=== PATIENT | male | born 1985 | race Two or more races ===

== ENCOUNTER 2019-06-24 16:42 | Emergency (ER) | payer OTHER ==
[~2019-06-24] VITALS: Ht 175.3 cm; Wt 90.7 kg
--- NOTE | 2019-06-24 16:55 | NUR ---
Patient walked in c/o flu like symptoms x 7 days. Pt reports a painful productive cough with pain rated at 7/10. Pt reports hx of HIV and Asthma. Pt V/S stable with no s/s of acute distress noted at this time.
[2019-06-24 17:03] VITALS: BP 134/100
[2019-06-24] MEDS: Albuterol/Ipratropium 3ml neb HHN SCH ×3 (17:26→17:55)
[2019-06-24] MEDS ORDERED: Oseltamivir 75mg cap ORAL SCH (17:30)
[2019-06-24] MEDS ORDERED: Lidocaine 1% MPF 10mg/ml 5ml INJ ONE (17:30)
--- NOTE | 2019-06-24 17:31 | NUR ---
ED Nurse Note: x-ray at bedside.
--- NOTE | 2019-06-24 17:59 | Emergency Room Report ---
History of Present Illness General Chief Complaint: Flu Like Symptoms Source: Patient Present Illness HPI 34-year-old male with history of HIV taking medication and under care of infectious disease specialist here complaining of 1 week of cough and congestion. Complains of shortness of breath when coughing. Denies any chest pain or palpitation at this time. Denies fever and chills, nausea vomiting, urinary symptoms. Denies tobacco smoke, drug use, marijuana use. Has not taken medication for symptom relief. Is up-to-date with immunization. Allergies: Coded Allergies: No Known Allergies (Unverified , 06/24/19) Patient History Past Medical History: see triage record Past Surgical History: unable to obtain Immunizations: UTD Reviewed Nursing Documentation: PMH: Agreed; PSxH: Agreed Nursing Documentation-PMH Past Medical History: No Stated History Hx Cardiac Problems: No - HIV + Hx Asthma: Yes Review of Systems All Other Systems: negative except mentioned in HPI Physical Exam Vital Signs Date Time Temp Pulse Resp B/P (MAP) Pulse Ox O2 Delivery O2 Flow Rate FiO2 06/24/19 16:55 98.8 87 18 134/100 (111) 95 Room Air 06/24/19 17:26 21 Sp02 EP Interpretation: reviewed, normal General Appearance: no apparent distress, alert, GCS 15, non-toxic Head: normocephalic, atraumatic Eyes: bilateral eye normal inspection, bilateral eye PERRL ENT: hearing grossly normal, normal pharynx, no angioedema, normal voice Neck: full range of motion, supple, thyroid normal, no meningismus, no bony tend, supple/symm/no masses Respiratory: no rhonchi, no respiratory distress, no retraction, no accessory muscle use, wheezing - diffuse Cardiovascular #1: regular rate, rhythm, no edema, no murmur Gastrointestinal: normal bowel sounds, non tender, soft, non-distended, no guarding, no rebound Genitourinary: no CVA tenderness Musculoskeletal: back normal, no calf tenderness Neurologic: alert, motor strength/tone normal, oriented x3, sensory intact, responsive, speech normal Psychiatric: judgement/insight normal, memory normal, mood/affect normal, no suicidal/homicidal ideation Skin: no rash Lymphatic: no adenopathy Medical Decision Making PA Attestation All my diagnosis and treatment plans were reviewed ad discussed with my supervising physician Dr. Blas Diagnostic Impression: Primary Impression: Atypical pneumonia ER Course 34-year-old male with history of HIV taking medication and under care of infectious disease specialist here complaining of 1 week of cough and congestion. Complains of shortness of breath when coughing. Denies any chest pain or palpitation at this time. Denies fever and chills, nausea vomiting, urinary symptoms. Denies tobacco smoke, drug use, marijuana use. Has not taken medication for symptom relief. Is up-to-date with immunization. Ddx considered but are not limited to: Pneumocystis pneumonia atypical pneumonia bronchitis, PNA, URI viral, bacterial bronchitis Vital signs: are WNL, pt. is afebrile H&PE are most consistent with: Atypical pneumonia ORDERS: Chest x-ray, prednisone, Phenergan, Bactrim DS, albuterol, Tamiflu ED INTERVENTIONS: Prednisone, 3 treatments of albuterol ipratropium nebulizer, Tamiflu, rocephin DISCHARGE: At this time pt. is stable for d/c to home. Will provide printed patient care instructions, and any necessary prescriptions. Care plan and follow up instructions have been discussed with the patient prior to discharge. Chest x-ray is clear and no signs of pneumonia noted however patient to be treated empirically for viral and bacterial causes of possible bacterial pneumonia as patient is HIV positive. Patient to follow-up with primary care provider. Patient agrees with the above treatment. Chest X-Ray Diagnostic Results Chest X-Ray Diagnostic Results : Chest X-Ray Ordered: Yes # of Views/Limited/Complete: 1 View Indication: Shortness of Breath EP Interpretation: Yes NOA Xray: Interpretation reviewed, by supervising MD, and agrees with findings. Interpretation: no consolidation, no effusion, no pneumothorax Impression: No acute disease Electronically Signed by: Lanie Pérez PA-C Last Vital Signs Date Time Temp Pulse Resp B/P (MAP) Pulse Ox O2 Delivery O2 Flow Rate FiO2 06/24/19 17:53 87 18 99 Room Air 21 85 18 97 06/24/19 17:03 98.8 134/100 Disposition: HOME, SELF-CARE Condition: Stable Scripts Albuterol Sulfate (VENTOLIN HFA) 18 Gm Hfa.aer.ad 2 PUFFS INH EVERY 6 HOURS, #18 GM 0 Refills Prov: Lanie Patel 06/24/19 Prednisone* (PREDNISONE*) 20 Mg Tablet 40 MG ORAL DAILY for 5 Days, #10 TAB Prov: Lanie Patel 06/24/19 Promethazine Hcl (PROMETHAZINE HCL*) 6.25 Mg/5 Ml Syrup 5 ML ORAL Q6H, #120 ML 0 Refills Prov: Lanie Patel 06/24/19 Oseltamivir Phosphate (Tamiflu) 75 Mg Capsule 75 MG ORAL TWICE A DAY for 5 Days, #10 CAP Prov: Lanie Patel 06/24/19 Trimethoprim/Sulfamethoxazole 160/800* (BACTRIM DS TABLET*) 1 Each Tablet 1 TAB ORAL TWICE A DAY for 7 Days, #14 TAB Prov: Lanie Patel 06/24/19 Patient Instructions: Upper Respiratory Infection, Adult, [id number] Additional Instructions: Take medication as directed, follow-up with your primary care provider, if worsening symptoms return to the emergency room Lanie Patel Jun 24, 2019 17:59
[2019-06-24] MEDS ORDERED: PREDNISONE20 MG ORAL (18:00)
[2019-06-24] MEDS ORDERED: VENTOLIN HFA18 GM INH (18:00)
[2019-06-24] MEDS ORDERED: BACTRIM DS TAB1 EAC1 ORAL (18:00)
[2019-06-24] MEDS ORDERED: PROMETHAZI6.25 MG/1 ORAL (18:00)
[2019-06-24] MEDS ORDERED: TAMIFLU75 MG ORAL (18:00)
[2019-06-24 18:12] VITALS: BP 129/68
--- NOTE | 2019-06-24 18:12 | NUR ---
ED Nurse Note: Pt cleared by health care Provider for discharge. Patient completed breathing treatment by RT. DC instructions/prescription was given and explained to pt and verbalized understanding of teachings. All medical deviecs such as ID band removed. Pt is AAO x4, ambulatory and left with all personal belongings.
--- NOTE | 2019-06-25 10:59 | Diagnostic Imaging Report ---
Indication: Cough Technique: XRAY Chest 1v Comparison: None Findings: Heart size and mediastinal contours within normal limits for AP technique. Question minimal subtle opacity in the left lung base which is favored to represent a confluence of vascular markings however developing infiltrate cannot entirely be excluded. Clinical correlation recommended. Right lung is clear. There is no radiographically appreciable pleural effusion or pneumothorax. Osseous structures demonstrate no acute abnormality. IMPRESSION: Question minimal subtle opacity in the left lung base which is favored to represent a confluence of vascular markings however developing infiltrate cannot entirely be excluded. Correlate clinically.
== END 2019-06-24 18:12 | disposition home or self-care (01) ==
LOC: EMR 18:07
DX: J18.9 Pneumonia, unspecified organism (principal); B20 Human immunodeficiency virus [HIV] disease
CPT/HCPCS: 71045; 96372; 96374; J0696; J7512; Z7502; 99284; J7620